=== PATIENT | male | born 1975 | race Caucasian/White ===

== ENCOUNTER 2017-12-02 08:01 | Emergency (ER) | payer OTHER ==
[~2017-12-02] VITALS: Ht 172.7 cm; Wt 140.6 kg
[~2017-12-02 08:01] MED LIST: ALBUTEROL2.5 MG/31 INH; AMOXICILLIN 50500 MG PO; AMOXICILLIN500 M1 PO; CHERATUSSIN AC118 ML PO; PREDNISONE 20 M20 M1 PO; PREDNISONE50 MG PO; PROAIR HFA8.5 GM INH; ZPAK PO
[2017-12-02 08:09] VITALS: BP 162/115
[2017-12-02] MEDS ORDERED: PREDNISONE 20 M20 M1 PO (08:15)
[2017-12-02] MEDS ORDERED: ZPAK PO (08:15)
== END 2017-12-02 08:24 | disposition home or self-care (01) ==
LOC: M.ERS 08:01
DX: J06.9 Acute upper respiratory infection, unspecified (principal); I10 Essential (primary) hypertension

== ENCOUNTER 2018-04-19 18:59 | Emergency (ER) | payer OTHER ==
[~2018-04-19] VITALS: Ht 172.7 cm; Wt 129.3 kg
[2018-04-19] MEDS ORDERED: LISINOPRIL20 MG PO (19:17)
[2018-04-19] MEDS ORDERED: MEDROLDOSEPACK PO (19:17)
[2018-04-19] MEDS ORDERED: AMOXIL 875 MG875 M1 PO (19:17)
[2018-04-19 19:31] VITALS: BP 170/120
== END 2018-04-19 19:32 | disposition home or self-care (01) ==
LOC: M.ERS 18:59
DX: J30.9 Allergic rhinitis, unspecified (principal); I10 Essential (primary) hypertension; J32.0 Chronic maxillary sinusitis

== ENCOUNTER 2021-12-09 08:08 | Emergency (ER) | payer OTHER ==
[~2021-12-09] VITALS: Ht 172.7 cm; Wt 122.5 kg
[~2021-12-09 08:08] MED LIST changes: +AMOXIL 875 MG875 M1 PO; +LISINOPRIL20 MG PO; +MEDROLDOSEPACK PO
[2021-12-09 08:20] VITALS: BP 219/130
[2021-12-09] MEDS ORDERED: ZPAK PO (08:55)
[2021-12-09] MEDS ORDERED: DEXAMETHASONE 44 M1 PO (08:55)
== END 2021-12-09 09:02 | disposition home or self-care (01) ==
LOC: M.ERS 08:08
DX: U07.1 COVID-19 (principal)